=== PATIENT | male | born 1985 | race American Indian/Alaskan Native ===

== ENCOUNTER 2020-12-11 19:45 | Emergency (ER) | payer MEDICAID ==
[2020-12-11 20:19] VITALS: BP 162/83; PULSE 91
--- NOTE | 2020-12-11 20:58 | CR ---
PROCEDURE INFORMATION: Exam: XR Left Ankle Exam date and time: 12/11/2020 8:43 PM Age: 35 years old Clinical indication: Pain; Ankle; Left; Additional info: Pain, injury TECHNIQUE: Imaging protocol: XR Left ankle. Views: 3 or more views. COMPARISON: No relevant prior studies available. FINDINGS: Bones/joints: There is a large well corticated fragment at the tip of the lateral malleolus measuring up to 12 mm. Other smaller chronic lateral fragments are identified. There is hypertrophic change at the tip of the medial malleolus.There is no evidence of acute fracture. Mortise is preserved. Talar dome smooth. Soft tissues: Moderate lateral soft tissue swelling. A small joint effusion is suspect. IMPRESSION: 1. Soft tissue swelling. Probable ankle effusion. 2. No convincing acute fracture seen. 3. Consider followup radiographs in 7-10 days, if symptoms persist.
[2020-12-11] MEDS ORDERED: Ibuprofen 600 MG Tab PO ONE (23:14)
--- NOTE | 2020-12-11 23:18 | EDM.PDOC ---
ED HPI GENERAL MEDICAL PROBLEM - General Chief Complaint: Lower Extremity Injury/Pain Stated Complaint: FELL LEFT ANKLE Time Seen by Provider: 12/11/20 22:30 Source of Information: Reports: Patient History Limitations: Reports: No Limitations - History of Present Illness INITIAL COMMENTS - FREE TEXT/NARRATIVE: fell ihole waking earlier today. did fine walking for awhile then got more painful, has not taken anything for discomfort. has not used ice. increased pain lateral ankle Left Ankle Pain Score (Numeric/FACES): 6 - Related Data Allergies Allergy/AdvReac Type Severity Reaction Status Date / Time No Known Allergies Allergy Verified 07/07/16 09:30 Home Meds: Home Meds lisinopriL [Lisinopril] 1 tab PO DAILY 12/11/20 [History] Past Medical History - Past Health History Medical/Surgical History: Denies Medical/Surgical History - Infectious Disease History Infectious Disease History: Reports: Influenza Social & Family History - Family History Family Medical History: No Pertinent Family History - Tobacco Use Tobacco Use Status *Q: Current Every Day Tobacco User Years of Tobacco use: 2 Packs/Tins Daily: 0.5 - Caffeine Use Caffeine Use: Reports: Energy Drinks - Recreational Drug Use Recreational Drug Use: No - Living Situation & Occupation Living situation: Reports: with Significant Other Occupation: Employed Review of Systems - Review of Systems Review Of Systems: Comprehensive ROS is negative, except as noted in HPI. ED EXAM, GENERAL - Physical Exam Exam: See Below Exam Limited By: No Limitations General Appearance: Alert, Mild Distress Eye Exam: Bilateral Eye: EOMI Ears: Hearing Grossly Normal Nose: Normal Inspection Throat/Mouth: Normal Voice Head: Atraumatic, Normocephalic Neck: Full Range of Motion Respiratory/Chest: No Respiratory Distress, Lungs Clear Cardiovascular: Normal Peripheral Pulses, Regular Rate, Rhythm Extremities: Joint Swelling (left lateral ankle), Limited Range of Motion Psychiatric: Normal Affect, Normal Mood Skin Exam: Warm, Dry, Intact, Normal Color. No: Ecchymosis, Wound/Incision Course - Vital Signs Last Recorded V/S: Last Vital Signs Temp 98.7 F 12/11/20 20:17 Pulse 91 12/11/20 20:17 Resp 16 12/11/20 20:17 BP 162/83 H 12/11/20 20:17 Pulse Ox 98 12/11/20 20:17 - Orders/Labs/Meds Meds: Medications Discontinued Medications Generic Name Dose Route Start Last Admin Trade Name Caty PRN Reason Stop Dose Admin Ibuprofen 600 mg 12/11/20 23:14 12/11/20 23:20 Ibuprofen 600 Mg Tab PO 12/11/20 23:15 600 mg ONETIME ONE Administration Departure - Departure Time of Disposition: 23:15 Disposition: Home, Self-Care 01 Condition: Good Clinical Impression: Left ankle sprain Qualifiers: Encounter type: initial encounter Involved ligament of ankle: unspecified ligament Qualified Code(s): S93.402A - Sprain of unspecified ligament of left ankle, initial encounter - Discharge Information *PRESCRIPTION DRUG MONITORING PROGRAM REVIEWED*: No *COPY OF PRESCRIPTION DRUG MONITORING REPORT IN PATIENT AUDREY: No Instructions: Crutch Use, Adult, [id number], Ankle Sprain, [id number] Forms: ED Department Discharge Additional Instructions: ice elevate crutches, weight bearing as tolerated nalini wrap alternate tylenol and ibuprofen every 4 hours as needed for discomfort clinic follow up recheck one week if not improving Sepsis Event Note (ED) - Evaluation Sepsis Screening Result: No Definite Risk - Focused Exam Vital Signs: Vital Signs Temp Pulse Resp BP Pulse Ox 12/11/20 20:17 98.7 F 91 16 162/83 H 98
== END 2020-12-11 23:23 | disposition home or self-care (01) ==
LOC: DL.ED 19:45
DX: S93.402A Sprain of unspecified ligament of left ankle, initial encounter (principal); Z72.0 Tobacco use; Z79.899 Other long term (current) drug therapy; W18.30XA Fall on same level, unspecified, initial encounter
CPT/HCPCS: 73610-LT; 99282; 99283-25; A9270-GY